=== PATIENT | female | born 2000 | race Caucasian/White ===

== ENCOUNTER → 2020-05-04 15:27 | Outpatient (CLI) | payer BC, OTHER, SELFPAY ==
[2020-05-04 15:17] VITALS: BMI 43.9
--- NOTE | 2020-05-04 15:28 | RAD_ITS ---
STUDY: X-RAY - RIGHT KNEE REASON FOR EXAM: Female, 19 years old. Chronic pain. TECHNIQUE: 4 view(s) of the knee. COMPARISON: None. FINDINGS: Normal visualized distal femur. Normal visualized proximal tibia and fibula. Normal proximal tibiofibular articulation. There is no acute fracture, dislocation or destructive osseous pathology. Normal medial femorotibial compartment. Normal lateral femorotibial compartment. Normal patellofemoral articulation. There is no demonstrated joint effusion. The soft tissue structures are unremarkable. RAD/Knee 4 or More Views IMPRESSION: Normal x-ray examination of the knee. Electronically Signed: Lj Melgar DO at 21:55 EDT Tel [phone], Service support ,
== END ==
PROVIDERS: Referring Provider Physician Assistant; Visit Provider Physician Assistant
DX: M25.561 Pain in right knee (principal); G89.29 Other chronic pain
CPT/HCPCS: 73564

== ENCOUNTER 2020-07-06 09:28 | Emergency (ER) | payer BC, OTHER, SELFPAY ==
[2020-05-04 15:17] VITALS: BMI 43.9
[2020-07-06 09:29] VITALS: BP 159/80; PULSE 87; RESP 18; TEMP 36.1; O2SAT 100; BMI 44.3
--- NOTE | 2020-07-06 09:41 | RAD_ITS ---
STUDY: X-RAY - BILATERAL RIBS WITH CHEST REASON FOR EXAM: Female, 19 years old. FALL -- INCREASING PAIN TECHNIQUE - RIBS: 5 view(s) of the ribs. TECHNIQUE - CHEST: Single PA view of the chest. COMPARISON: None. FINDINGS - RIBS : Normal visualized ribs without a demonstrated fracture. FINDINGS - CHEST: The lungs are clear and expanded. There is no demonstrated pleural abnormality. Normal size heart. Normal mediastinum and brody. Normal visualized pulmonary arteries. Normal visualized aortic arch and descending thoracic aorta. Normal visualized thoracic spine. Normal visualized ribs, clavicles, and shoulders. There is no demonstrated abnormality of the visualized soft tissue structures of the upper abdomen. RAD/Ribs Carlos Min 4V w/PA Chest IMPRESSION: RIBS: Normal x-ray examination of the bilateral ribs. CHEST: Normal x-ray examination of the chest. Electronically Signed: Mikey Muhammad, at 10:12 EDT , Service support ,
--- NOTE | 2020-07-06 09:41 | RAD_ITS ---
STUDY: X-RAY - THORACIC SPINE REASON FOR EXAM: Female, 19 years old. FALL -- INCREASING PAIN TECHNIQUE: 3 view(s) of the thoracic spine were obtained. COMPARISON: None. FINDINGS: Normal kyphosis of the thoracic spine. There is no substantial scoliosis. Normal thoracic vertebrae and endplates. Normal disc space heights. The soft tissue structures are unremarkable. RAD/Thoracic Spine 3 Views IMPRESSION: Normal x-ray examination of the thoracic spine. Electronically Signed: Mikey Muhammad, at 10:12 EDT , Service support ,
--- NOTE | 2020-07-06 09:42 | RAD_ITS ---
STUDY: X-RAY - CERVICAL SPINE REASON FOR EXAM: Female, 19 years old. FALL -- INCREASING PAIN TECHNIQUE: 4 view(s) of the cervical spine were obtained. COMPARISON: None FINDINGS: Normal anterior atlantoaxial articulation. Normal odontoid process. There is straightening of the normal cervical lordosis. Normal vertebral bodies and endplates. Normal disc space heights. Normal visualized intervertebral neuroforamina. The soft tissue structures are unremarkable. RAD/Cerv Spine 2 or 3 Views IMPRESSION: Straightening of the normal cervical lordosis. Electronically Signed: Mikey Muhammad, at 10:11 EDT , Service support ,
--- NOTE | 2020-07-06 09:42 | ED.DCSUM_ITS ---
History of Present Illness Informant: Patient, Family Occurred: Days - 2 days ago Mechanism/Context: Same level fall, Slip. Negative for: Cannot recall fall, Prodromal, Dizziness, Vertigo, Lightheadedness, Near-syncope Usually ambulates: Without assistance Location: neck, back, ribs Quality of Pain: Sharp Current Severity: Moderate Maximum Severity: Moderate Worsened by: movement Relieved by: nothing Associated Symptoms: Negative for: Parasthesias, Weakness, Loss of function, Inability to ambulate, Loss of consciousness, Amnesia Length of loss of consciousness: none Narrative: 19-year-old female with no significant past medical history presents to the emergency department with back pain after a fall. 2 days ago she was letting her dogs out it was wet on her deck she slipped and fell on the last step hitting her back on the stairs of her deck. No prodromal symptoms. She did not hit her head or lose consciousness. She has had continued pain in her mostly thoracic back and her both sides of her back. She is not felt lightheaded or dizzy. No nausea or vomiting. No weakness or paresthesias. No visual changes or difficulties with speech or ambulation. She denies any cough shortness of breath or chest pain. She is not on an anticoagulant. No history of back surgery. She has been using ibuprofen with mild relief. She denies any other injuries. Tetanus Immunization: Unknown Prior similar symptoms: No Recent Illness/Hospitalization: No <Ihsan Sosa - Last Filed: 07/06/20 10:26> <Price Cole - Last Filed: 07/06/20 15:41> Chief Complaint: Fall Past Medical History Prior records reviewed: Yes Surgical History: arthroscopy, knee Lives: With Family Smoking Status: Never smoker Alcohol: None Drugs: None <Ihsan Sosa - Last Filed: 07/06/20 10:26> <Price Cole - Last Filed: 07/06/20 15:41> - Allergies and Home Meds Allergies/Adverse Reactions: Allergies No Known Allergies Allergy (Verified 07/06/20 09:31) Primary Care Physician: Gianna Soto DO [Primary Care Provider] - Review of Systems All systems negative except as indicated General: Denies: Chills, Fever, Sweats Eyes: Denies: Visual changes - bilaterally, Diplopia ENT: Denies: Bilateral ear pain, Rhinorrhea, Sore throat Cardiovascular: Denies: Chest pain, Palpitations Respiratory: Denies: Dyspnea, Cough, Dyspnea on exertion Gastrointestinal: Denies: Abdominal pain, Nausea, Vomiting, Diarrhea, Melena, Hematochezia Genitourinary: Denies: Dysuria, Hematuria, Frequency Musculoskeletal: Reports: Neck pain, Back pain. Denies: Myalgias, Arthralgias, Swelling, Extremity Pain Skin: Denies: Rash, Abscess, Abrasions, Wounds Neurological: Denies: Headache, Weakness, Parasthesia, Numbness <Ihsan Sosa - Last Filed: 07/06/20 10:26> Physical Exam Vital Signs/Narrative: Vital Signs Temp Pulse Resp BP Pulse Ox 07/06/20 09:29 97 F L 87 18 159/80 H 100 Inital Vital Signs reviewed: Yes General: Well nourished, Well developed Head: Normocephalic, Atraumatic Eyes: Perrl, EOMI ENT: TM's clear, No hemotympanum or drainage, No trauma Neck: Full ROM, Paraspinal Tenderness. Negative for: Spinal Tenderness Cardiovascular: Regular rate, Regular rhythm, No murmurs Respiratory: No distress, CTA bilaterally, Chest tenderness - Pain on palpation left posterior ribs. Normal inspection. No crepitus no bruising or deformities are noted.. Negative for: Decreased Air Movement Abdomen: Soft, Nontender, Nondistended, Normal bowel sounds Back: Spinal Tenderness, Paraspinal Tenderness, Negative SLR - Right, Negative SLR - Left, - - Normal inspection of the patient's neck and back. She has moderate tenderness to palpation over the thoracic spine. She has no tenderness over her cervical spine or lumbar spine. She has bilateral paraspinal pain of her thoracic spine. She has 5 out of 5 strength testing of both upper extrem itie. Negative for: CVA Tenderness - Right, CVA Tenderness - Left Skin: Normal color, No rash Neurological: Alert, Oriented x3, Cranial nerves II-XII grossly intact, Normal Strength, Normal Sensation, Normal Gait Psychological: Normal affect, Normal Mood <Ihsan Sosa - Last Filed: 07/06/20 10:26> Diagnostic/Tx/Re-eval Impressions Ribs w/Chest X-Ray 07/06/20 09:41 IMPRESSION: RIBS: Normal x-ray examination of the bilateral ribs. CHEST: Normal x-ray examination of the chest. Electronically Signed: Mikey Muhammad, at 10:12 EDT , Service support , Thoracic Spine X-Ray 07/06/20 09:41 IMPRESSION: Normal x-ray examination of the thoracic spine. Electronically Signed: Mikey Muhammad, at 10:12 EDT , Service support , Cervical Spine X-Ray 07/06/20 09:42 IMPRESSION: Straightening of the normal cervical lordosis. Electronically Signed: Mikey Muhammad, at 10:11 EDT , Service support , 07/06/20 09:41 Thoracic Spine 3 Views [RAD] Stat Xray Ribs [Ribs Carlos Min 4V w/PA Chest] [RAD] Stat 07/06/20 09:42 Cerv Spine 2 or 3 Views [RAD] Stat - Medical Decision Making Patient declined analgesia. X-rays of the cervical and thoracic spine and bilateral rib series with chest x- ray are unremarkable. Patient reassured. Discussed supportive care. I will prescribe Naprosyn. She will rest and ice. She will follow with her primary care physician. We discussed return precautions. She will be given a note for work. She was agreeable with plan all questions answered discharged home. <Ihsan Sosa - Last Filed: 07/06/20 10:26> - Medical Decision Making Patient interviewed and evaluated independently by myself in concert with physician operator/assistant foreman. Agree with above. Patient appears well and nontoxic. Imaging negative. Patient will be given naproxen. Advised on ice and rest. Asked to follow-up with primary care. Patient agreeable and discharged home in stable condition. <Price Cole - Last Filed: 07/06/20 15:41> ED Disposition <Ihsan Sosa - Last Filed: 07/06/20 10:26> <Price Cole - Last Filed: 07/06/20 15:41> - Plan for ED Patient: Disposition: Home or Assisted Living Diagnosis: Back contusion, Bilateral contusion of ribs Instructions: ED Contusion Back, ED CONTUSION Rib Prescriptions: Naproxen [Naprosyn] 500 mg PO BID #14 tab Transmission Status: Received by [facility] Referrals: Gianna Soto DO [Primary Care Provider] -
[2020-07-06 10:43] VITALS: PULSE 75; RESP 16; O2SAT 98
--- NOTE | 2020-07-06 10:44 | ED.RN ---
pt given written and verbal dc instructions. pt advised rx was electronically sent to [facility] in [place]. Pt requested a work note and was given one. Pt ambulated out of department without difficulty.
== END 2020-07-06 10:45 | disposition home or self-care (01) ==
LOC: ED 10:39
PROVIDERS: Emergency Provider Physician Assistant Medical; PCP Internal Medicine
DX: S20.213A Contusion of bilateral front wall of thorax, initial encounter (principal); S20.229A Contusion of unspecified back wall of thorax, initial encounter; W01.0XXA Fall on same level from slipping, tripping and stumbling without subsequent striking against object, initial encounter; Y93.89 Activity, other specified; Y92.9 Unspecified place or not applicable; Y99.9 Unspecified external cause status
CPT/HCPCS: 71111; 72040; 72072; 99281